=== PATIENT | female | born 1960 | race African-American/Black ===

== ENCOUNTER → 2016-09-18 | Outpatient (CLI) | payer OTHER ==
[~2016-09-18] MED LIST: GADOBUTROL 10 MMOL/10 ML VIAL IV ONE; HYDR12.53 PO; METF500T4 PO
--- NOTE | 2016-09-18 12:21 | RAD ---
Indication: Left arm pain and limited range of motion. Time of exam 12:10 PM Alignment at the shoulder and elbow is normal. The humerus appears intact. No fractures are seen. The soft tissues are unremarkable. Impression: No acute bony abnormality is detected.
--- NOTE | 2016-09-18 12:44 | RAD ---
DATE: September 18, 2016 EXAM: DIGITAL SCREEN BILAT W/CAD HISTORY: New baseline study. This study was interpreted with the benefit of Computerized Aided Detection (CAD ). FINDINGS: The breast parenchyma is fatty replaced. There are no dominant suspicious masses , suspicious microcalcifications or evidence of architectural distortion. However, there is a small nodule present within the medial aspect of the right breast in the CC projection. This appears to be located inferiorly in the MLO projection. However, recommend right breast sonography of the medial one half of the right breast. Benign calcified cyst left breast are seen. No clustering of pleomorphic microcalcifications are evident on either side. IMPRESSION: Small nodule of the right breast. Recommend right breast sonography. BI-RADS CATEGORY: 0 INCOMPLETE: NEEDS ADDITIONAL IMAGING EVALUATION AND/OR PRIOR MAMMOGRAMS FOR COMPARISON. RECOMMENDED FOLLOW-UP: Now PQRS compliance statement: Patient information was entered into a reminder system with a target due date now for the next mammogram. Mammography is a sensitive method for finding small breast cancers, but it does not detect them all and is not a substitute for careful clinical examination. A negative mammogram does not negate a clinically suspicious finding and should not result in delay in biopsying a clinically suspicious abnormality. "Our facility is accredited by the [employer] Mammography [employer]." The patient's breast density may affect the ability of mammography to detect breast cancer. There are 4 categories of breast density, A, B, C and D. Breast density A means that most of the breast tissue is replaced with adipose tissue and therefore is not dense. Breast density B means that the breast tissue is mildly dense and scattered. Breast density C means that the breast tissue is heterogeneously dense. Breast density D means that the breast tissue is very dense. Breast densities especially C and D may decrease the sensitivity of mammography to detect breast cancer. Therefore, the patient may benefit from 3- D breast mammography (3D breast tomography) as a part of their screening mammogram. Insurance may or may not pay for this additional imaging. The patient 's breast density based on today's mammogram is category A.. MTDD
[2016-09-18 12:45] LABS: CREATININE 0.7 mg/dL (0.6-1.0); GFR 105.5
--- NOTE | 2016-09-18 16:34 | RAD ---
MRI of the cervical spine without and with contrast 09/18/2016 CLINICAL HISTORY: Neck pain which radiates down right arm for 3 months. TECHNIQUE: Unenhanced T1-weighted and T2-weighted inversion recovery sagittal and gradient echo, T2-weighted and T1-weighted axial images of the cervical spine were obtained. After the intravenous administration of 6 cc of Gadavist, unenhanced T1 weighted sagittal and axial images of the cervical spine were obtained. FINDINGS: Minimal lateral curvature of the cervical spine is seen convex to the left. There is reversal of the normal cervical lordosis. Degenerative signal changes are seen involving all the disks of the cervical spine. Degenerative signal changes are seen within the marrow surrounding these discs. Loss of height of the C3-4, C4-5, C5-6 and C6-7 discs is noted. No area of abnormal signal intensity is seen involving the cervical spinal cord. No area of abnormal contrast enhancement is seen. At the C2-3 disc space there is a mild generalized disc bulge. Degenerative changes are seen involving the uncovertebral and facet joints bilaterally. These findings do not result in significant central spinal canal or neural foraminal stenosis. At the C3-4 disc space there is a mild to moderate generalized disc bulge. Degenerative changes are seen involving the uncovertebral and facet joints bilaterally. These findings efface the anterior CSF resulting in mild central spinal canal stenosis without evidence of cord impingement. Mild right greater than left neural foraminal stenosis is seen. At the C4-5 disc space there is a mild to moderate generalized disc bulge. Degenerative changes are seen involving the uncovertebral and facet joints, left greater than right. These findings efface the anterior CSF resulting in mild central spinal canal stenosis without evidence of cord impingement. Mild left greater than right neural foraminal stenosis is seen. At the C5-6 disc space there is a mild to moderate generalized disc bulge. Degenerative changes are seen involving the uncovertebral and facet joints, right greater than left. These findings efface the anterior CSF resulting in mild central spinal canal stenosis without evidence of cord impingement. Very mild bilateral neural foraminal stenosis is seen. At the C6-7 disc space there is a mild generalized disc bulge. Degenerative changes are seen involving the uncovertebral and facet joints bilaterally. These findings do not result in significant central spinal canal stenosis. Mild to moderate bilateral neural foraminal stenosis is seen. At the C7-T1 disc space there is a mild generalized disc bulge. Degenerative changes are seen involving the uncovertebral and facet joints, right greater than left. These findings do not result in significant central spinal canal or neural foraminal stenosis. IMPRESSION: Degenerative changes are seen throughout the cervical spine. These findings result in mild central spinal canal stenosis at C3-4, C4-5 and C5-6 without evidence of cord impingement. Multilevel neural foraminal stenosis of varying severity is seen as outlined above. Electronically signed by: Mckinley Mclaughlin MD (09/18/2016 4:31 PM)
== END | disposition home or self-care (01) ==
LOC: RAD 11:26
PROVIDERS: ATTEND Family Medicine
DX: Z12.31 Encounter for screening mammogram for malignant neoplasm of breast (principal); M48.02 Spinal stenosis, cervical region; M47.892 Other spondylosis, cervical region; M43.8X2 Other specified deforming dorsopathies, cervical region; M79.2 Neuralgia and neuritis, unspecified; M79.602 Pain in left arm
CPT/HCPCS: 36415; 72156; 73060; 82565; A9585; G0202; 77067

== ENCOUNTER → 2016-09-20 | Outpatient (CLI) | payer OTHER ==
[~2016-09-20] MED LIST changes: -GADOBUTROL 10 MMOL/10 ML VIAL IV ONE
--- NOTE | 2016-09-20 15:16 | RAD ---
RIGHT BREAST SONOGRAPHY Indications: further evaluation of nodule seen within the medial aspect of the right breast on screening mammogram dated September 18, 2016. Comparison: Mammogram dated September 18, 2016. Findings: High-resolution sonography of the medial half of the right breast was performed. 2 small echogenic foci of fatty tissue are seen at the 10:00 position 9 cm from the nipple each measuring 5 mm in size. This is a benign finding and does not correspond to the mammographic finding. Otherwise no focal sonographic abnormality is seen to correspond to the mammographic finding of the right breast. Therefore, recommend 6 month follow-up mammogram of the right breast to ensure stability. IMPRESSION: Probable benign finding of the right breast. Recommend 6 month follow-up mammogram of the right breast to ensure stability. BI-RADS Category 3 probable benign finding. The patient information was entered into the data reminder system with a target due date for the next mammogram of March 20, 2017.
== END | disposition home or self-care (01) ==
LOC: US 13:57
PROVIDERS: ATTEND Family Medicine
DX: N63 Unspecified lump in breast (principal)
CPT/HCPCS: 76641